=== PATIENT | male | born 1985 | race Caucasian/White ===

== ENCOUNTER → 2019-10-10 18:09 | Outpatient (BNVA) | payer SELFPAY | PROVIDERS: Visit Provider Emergency Medicine | DX: R82.90 Unspecified abnormal findings in urine (principal); R10.9 Unspecified abdominal pain; R17 Unspecified jaundice; R29.810 Facial weakness; R10.84 Generalized abdominal pain; F10.10 Alcohol abuse, uncomplicated; F15.10 Other stimulant abuse, uncomplicated; F19.90 Other psychoactive substance use, unspecified, uncomplicated | CPT/HCPCS: 80053; 81000; 83690; 85025; 85610; 85730; 86705; 86706; 86709; 86803; 87340 ==